=== PATIENT | female | born 1935 | race Caucasian/White ===

== ENCOUNTER 2016-07-20 09:11 | Outpatient (CLI) | payer MEDICARE, OTHER | END 2016-07-20 09:12 | disposition home or self-care (01) | DX: I63.9 Cerebral infarction, unspecified (principal) ==

== ENCOUNTER 2016-12-10 11:44 | Outpatient (CLI) | payer MEDICARE, OTHER | END 2016-12-10 11:45 | disposition home or self-care (01) | LOC: LAB.N 11:44 | PROVIDERS: ATTEND Family Medicine | DX: I63.9 Cerebral infarction, unspecified (principal) | CPT/HCPCS: 85610 ==

== ENCOUNTER 2017-01-10 10:53 | Outpatient (CLI) | payer MEDICARE, OTHER | END 2017-01-10 10:54 | disposition home or self-care (01) | LOC: NS 10:53 | PROVIDERS: ATTEND Family Medicine | DX: Z71.3 Dietary counseling and surveillance (principal); E11.9 Type 2 diabetes mellitus without complications; Z68.34 Body mass index [BMI] 34.0-34.9, adult | CPT/HCPCS: 97802 ==

== ENCOUNTER 2017-01-17 08:00 | Outpatient (CLI) | payer MEDICARE, OTHER | END 2017-01-17 08:01 | disposition home or self-care (01) | LOC: LAB.N 08:00 | PROVIDERS: ATTEND Family Medicine | DX: I63.9 Cerebral infarction, unspecified (principal) | CPT/HCPCS: 85610 ==

== ENCOUNTER 2017-02-14 08:00 | Outpatient (CLI) | payer MEDICARE, OTHER | END 2017-02-14 08:01 | disposition home or self-care (01) | LOC: LAB.N 08:00 | PROVIDERS: ATTEND Family Medicine | DX: I63.9 Cerebral infarction, unspecified (principal) | CPT/HCPCS: 85610 ==

== ENCOUNTER 2017-03-18 15:34 | Outpatient (CLI) | payer MEDICARE, OTHER | END 2017-03-18 15:35 | disposition home or self-care (01) | LOC: LAB.N 15:34 | PROVIDERS: ATTEND Family Medicine | DX: I63.9 Cerebral infarction, unspecified (principal) | CPT/HCPCS: 85610 ==

== ENCOUNTER 2017-08-26 08:00 | Outpatient (CLI) | payer MEDICARE, OTHER | END 2017-08-26 08:01 | disposition home or self-care (01) | LOC: LAB.N 08:00 | PROVIDERS: ATTEND Family Medicine | DX: I63.9 Cerebral infarction, unspecified (principal) | CPT/HCPCS: 85610 ==

== ENCOUNTER 2017-09-27 10:50 | Outpatient (CLI) | payer MEDICARE, OTHER | END 2017-09-27 10:51 | disposition home or self-care (01) | LOC: LAB.N 10:50 | PROVIDERS: ATTEND Family Medicine | DX: I63.9 Cerebral infarction, unspecified (principal) | CPT/HCPCS: 85610 ==

== ENCOUNTER 2017-12-15 10:48 | Outpatient (CLI) | payer MEDICARE, OTHER | END 2017-12-15 23:59 | disposition home or self-care (01) | LOC: LAB.N 10:48 | PROVIDERS: ATTEND Family Medicine | DX: I63.9 Cerebral infarction, unspecified (principal) | CPT/HCPCS: 85610 ==

== ENCOUNTER 2018-02-13 08:00 | Outpatient (CLI) | payer MEDICARE, OTHER | END 2018-02-13 08:01 | LOC: LAB.N 08:00 | PROVIDERS: ATTEND Family Medicine | DX: I63.9 Cerebral infarction, unspecified (principal) | CPT/HCPCS: 85610 ==

== ENCOUNTER 2018-04-11 15:35 | Outpatient (CLI) | payer MEDICARE, OTHER | END 2018-04-11 15:36 | disposition home or self-care (01) | LOC: LAB.N 15:35 | PROVIDERS: ATTEND Family Medicine | DX: I63.9 Cerebral infarction, unspecified (principal) | CPT/HCPCS: 85610 ==

== ENCOUNTER 2018-06-21 11:19 | Outpatient (CLI) | payer MEDICARE, OTHER | END 2018-06-21 23:59 | disposition home or self-care (01) | LOC: LAB.N 11:19 | PROVIDERS: ATTEND Family Medicine | DX: I63.9 Cerebral infarction, unspecified (principal) | CPT/HCPCS: 85610 ==

== ENCOUNTER 2018-07-19 08:00 | Outpatient (CLI) | payer MEDICARE, OTHER | END 2018-07-19 23:59 | disposition home or self-care (01) | LOC: LAB.N 08:00 | PROVIDERS: ATTEND Family Medicine | DX: I63.9 Cerebral infarction, unspecified (principal) | CPT/HCPCS: 85610 ==

== ENCOUNTER 2018-09-01 08:00 | Outpatient (CLI) | payer MEDICARE, OTHER | END 2018-09-01 23:59 | disposition home or self-care (01) | LOC: LAB.N 08:00 | PROVIDERS: ATTEND Family Medicine | DX: I63.9 Cerebral infarction, unspecified (principal) | CPT/HCPCS: 85610 ==

== ENCOUNTER 2018-12-04 08:00 | Outpatient (CLI) | payer MEDICARE, OTHER | END 2018-12-04 23:59 | disposition home or self-care (01) | LOC: LAB.N 08:00 | PROVIDERS: ATTEND Family Medicine | DX: I63.9 Cerebral infarction, unspecified (principal) | CPT/HCPCS: 85610 ==

== ENCOUNTER 2019-05-06 21:30 | Outpatient (CLI) | payer MEDICARE, OTHER | END 2019-05-06 21:31 | disposition short-term general hospital (02) | LOC: EMS 21:30 | PROVIDERS: ATTEND Surgery | DX: R73.09 Other abnormal glucose (principal); R07.89 Other chest pain | CPT/HCPCS: A0425; A0429 ==

== ENCOUNTER 2020-02-14 20:00 | Outpatient (CLI) | payer MEDICARE, OTHER | END 2020-02-14 20:01 | disposition critical access hospital (66) | LOC: EMS 20:00 | PROVIDERS: ATTEND Surgery | DX: M25.552 Pain in left hip (principal); R29.6 Repeated falls; R53.1 Weakness; W18.39XA Other fall on same level, initial encounter; Y92.008 Other place in unspecified non-institutional (private) residence as the place of occurrence of the external cause | CPT/HCPCS: A0425; A0429 ==

== ENCOUNTER 2020-12-01 12:52 | Outpatient (CLI) | payer MEDICARE | END 2020-12-01 12:53 | disposition short-term general hospital (02) | LOC: EMS 12:52 | DX: Z04.3 Encounter for examination and observation following other accident (principal); M54.2 Cervicalgia; M25.552 Pain in left hip | CPT/HCPCS: A0425; A0429 ==